=== PATIENT | male | born 1950 | race Caucasian/White ===

== ENCOUNTER → 2018-08-11 | Outpatient (CLI) | payer OTHER ==
[~2018-08-11] MED LIST: ASPIR 8181 MG PO; ATORVASTATIN CA40 MG PO; BRILINTA90 MG PO; HYTRIN 1 MG CAP1 MG PO; HYTRIN 5 M5 MG/1 CAP PO; METOPROLOL TART25 MG PO; NITROGLYCERIN0.4 MG SUBLING; TYLENOL325 MG PO; VITAMIN D2000 UNIT PO
--- NOTE | 2018-08-25 20:50 | SLEEP ---
[address] [address] SLEEP STUDY REPORT Name: JAVIERPAULINO Mouna Room: [facility]#: [id number] Admission: 08/11/18 Attend Phys: Jordy Delarosa Discharge: Date of : 48 Report #: [id number] THIS REPORT FOR: //name// CC: Jen Callejas DO This study has been reviewed in its entirety by a board certified sleep specialist DATE OF SERVICE: 08/12/2018 HOME SLEEP STUDY ATTENDING PHYSICIAN: Dr. Jen Callejas. The patient is a 68-year-old who weighs 195 pounds with a BMI of 29.6. The patient's [place] score was 8. The patient underwent home sleep study performed at [facility]. Total recording time was 371 minutes. During the night study, the patient had 21 obstructive apneas, 1 central and no mixed apneas and no hypopneas. The patient's apnea hypopnea index was 5 per hour. Supine index 6.5 per hour. Nocturnal oximetry study revealed an average oxygen saturation of 92% with a lowest of 80%. Thirty minutes were spent in oxygen saturation of less than 90%. Mean heart rate was 75 beats per minute with a maximum of 92 beats per minute. IMPRESSION: 1. Mild sleep apnea-hypopnea syndrome with an apnea-hypopnea index of 5 per hour. 2. Mild nocturnal hypoxia secondary to obstructive sleep apnea. RECOMMENDATIONS: 1. The patient has only mild sleep apnea. I would recommend weight loss as the initial form of treatment. 2. Once optimum weight loss is achieved, then re-evaluate. if the patient continues to be symptomatic, then treatment option would include use of an oral appliance as recommended by the dentist versus a trial of CPAP. 3. Avoid [place] [address] SLEEP STUDY REPORT Name: PAULINO HERRERA Room: [facility]#: [id number] Admission: 08/11/18 Attend Phys: Jordy Delarosa Discharge: Date of : 48 Report #: [id number] 4. Cautioned regarding driving until symptoms of sleep apnea resolve with the above recommendations. <ELECTRONICALLY SIGNED> By: Duc Jimenez MD 08/25/182049 1605 Jose Cruz Jimenez MD /nt
== END ==
LOC: M.SLEEPLAB 09:43
DX: G47.30 Sleep apnea, unspecified (principal); G47.9 Sleep disorder, unspecified; G47.34 Idiopathic sleep related nonobstructive alveolar hypoventilation; I10 Essential (primary) hypertension; E78.5 Hyperlipidemia, unspecified; I65.29 Occlusion and stenosis of unspecified carotid artery; E66.9 Obesity, unspecified; F17.210 Nicotine dependence, cigarettes, uncomplicated; I25.810 Atherosclerosis of coronary artery bypass graft(s) without angina pectoris; Z68.39 Body mass index [BMI] 39.0-39.9, adult

== ENCOUNTER → 2018-11-28 | Outpatient (CLI) | payer OTHER | LOC: M.ULTRA 10:50 | DX: E04.1 Nontoxic single thyroid nodule (principal) ==

== ENCOUNTER 2020-05-23 07:36 | Observation (INO) | payer OTHER ==
[~2020-05-23] VITALS: Ht 172.7 cm; Wt 87.1 kg
[2020-05-23] VITALS (12 sets, daily range): BP systolic 110–153; BP diastolic 62–89
--- NOTE | ~2020-05-23 | H ---
[address] [address] HISTORY AND PHYSICAL Name: PAULINO HERRERA Room: [address] Kelley Burch#: [id number] Admission: 05/23/20 Attend Phys: Syd Fink MD, F Discharge: 05/24/20 Date of : 48 Report #: [id number] THIS REPORT FOR: cc: Jen Callejas Linda J. DO ~ [facility],Medical Records Staff Please refer to the History and Physical performed in the physician's office. By: [id number] Records Staff [facility] /PEGGY
[2020-05-23 08:11] LABS: HEMATOCRIT 41.7 % (42.0-52.0); HEMOGLOBIN 14.2 gm/dL (14.0-18.0); MCH 30.6 pg (26.0-34.0); MCHC 33.9 g/dL (28.0-37.0); MCV 90.1 fL (80.0-100.0); MPV 8.8 fl. (7.2-11.1); RBC 4.63 mil/uL (4.50-6.00); RDW-CV 13.4 % (10.5-14.5); WBC 8.2 thou/uL (4.0-11.0)
[2020-05-23 08:19] LABS: ANION GAP 8 mmol/L (7-16); BUN 17 mg/dL (7-18); CALCIUM 9.1 mg/dL (8.5-10.1); CHLORIDE 104 mmol/L (98-107); CO2 26 mmol/L (21-32); CREATININE 1.1 mg/dL (0.6-1.3); GLUCOSE 81 mg/dL (70-99); SODIUM 138 mmol/L (136-145)
[2020-05-23] MEDS ORDERED: PROTONIX40 M2 PO (08:21)
[2020-05-23 08:22] LABS: APTT 26.7 Seconds (25.0-31.3); PROTIME 10.7 Seconds (9.20-11.50)
[2020-05-23 08:24] LABS: ALBUMIN 3.8 g/dL (3.4-5.0); ALKALINE PHOSPHATASE 92 U/L (46-116); CHOLESTEROL 168 mg/dL (<200); HDL CHOLESTEROL 41 mg/dL (>40); LDL CHOLESTEROL 87 mg/dL (<100); SGOT 24 U/L (15-37); SGPT 22 U/L (30-65); TC:HDL 4.1 Ratio (Not establshd); TOTAL BILIRUBIN 0.7 mg/dL (<0.1-1.0); TOTAL PROTEIN 7.8 g/dL (6.4-8.2); TRIGLYCERIDE 200 mg/dL (<150); VLDL 40 mg/dL (<40)
[2020-05-23 08:25] LABS: SERUM ASSESSMENT Clear
--- NOTE | 2020-05-23 09:30 | EKG ---
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
--- NOTE | 2020-05-23 13:53 | EKG ---
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1950 Requested By: Syd Fink Order Number: [id number] Reading MD: Syd Fink Measurements Intervals [facility] [place] Rate: 84 P: 73 SD: 170 QRS: 14 QRSD: 92 T: 75 QT: 391 QTc: 463 Interpretive Statements Sinus rhythm nonspecific st segment changes Low voltage, extremity leads Consider left ventricular hypertrophy Compared to ECG 05/23/2020 08:37:57 No significant changes Electronically Signed On 05-23-2020 13:53:32 DIRECTOR OF FEDERAL SALES by Syd Fink [email or web address] <ELECTRONICALLY SIGNED> By: Syd Fink MD, FAC 05/23/20 1353 1129 1129 Syd Fink MD, [facility] /EPI
--- NOTE | 2020-05-23 16:53 | CARD ---
[address] [address] CARDIAC CATH REPORT Name: PAULINO HERRERA Room: [address] Kelley M.RYessy#: [id number] Admission: 05/23/20 Attend Phys: Syd Fink MD, F Discharge: Date of : 48 Report #: [id number] THIS REPORT FOR: cc: Jen Callejas Linda J. DO ~ Syd Fink MD [facility] APPROVED REPORT Study performed: 05/23/2020 09:18:30 Patient Details Patient Status: Out-Patient Room #: The patient is a 69 year-old male Event Personnel Syd Fink Armament Repairer, Josias Smart PHOTOLITH OPERATOR Monitor, Debbi Alberto RN Neonatal Intensive Care Nurse, Keon Calzada RTR Scrub Procedures Performed Left Heart Cath Coronaries, Bypass Grafts [id number] LHCCORCABG BHUPENDRA Revasc Graft Single RCA C9604 SVGREVSING BHUPENDRA Revasc Graft Single OM C9604 SVGREVSING Hemostasis w/ Angioseal Indication Unstable angina Risk Factors Hypercholesterolemia, Coronary Artery Disease, Tobacco History () Previous Procedures/Diagnoses Previous CABGPrevious PCI Admission/Lab Medications/Medications given during procedure Glycoprotein IllbIlla Inhibitors, Heparin Unfract. Procedure Narrative The patient was brought electively to the Cardiac Catheterization Laboratory and was prepped and draped in a sterile manner. The right femoral was infiltrated with 1% Lidocaine subcutaneous anesthesia. A [place] 6 FR sheath was inserted into the right femoral artery. Coronary angiography was performed using coronary diagnostic catheters. The right coronary system [place] [address] CARDIAC CATH REPORT Name: JAVIERPAULINO Room: [address] Kelley Burch#: [id number] Admission: 05/23/20 Attend Phys: Syd Fink MD, F Discharge: Date of : 48 Report #: [id number] a JR4 catheter. The left coronary system was accessed and visualized with a JL4 catheter. Left ventricular/Aortic Valve gradient assessed via catheter pullback. Closure device was deployed with a 6 Fr Angioseal. The patient tolerated the procedure well and there were no complications associated with the procedure. There was no hematoma. Intraoperative Conscious Sedation Sedation start time: 948 Case end Time: 1045 Fentanyl 100 mcg Versed 5 mg Fluoro Time: 10.4 minutes Dose: DAP 208808 cGycm2 1843 mGy Contrast Type and Amount: Omnipaque 230 ml Coronary Angiography The patient's coronary anatomy is right dominant. [place] Artery Percent Stenosis Patent ZIEGLER graft to the LAD. SVG to the ramus artery had a 30% proximal stenosis. SVG to the circumflex artery had multiple stents with a mid 80% restenosis noted. SVG to the RCA had a mid 90% stenosis. Diagnostic Cath Left Main 70% proximal stenosis LAD 90% mid stenosis noted. Circumflex proximally occluded Right Coronary proximally occluded Left Ventriculography Left Ventriculography was not performed. Hemodynamics The aortic pressure is 172/73 mmHg with a mean of 112 mmHg. The left ventricular pressure is 159/10 mmHg with a mean of mmHg. The left ventricular end diastolic pressure is 16 mmHg. There was no gradient across the aortic valve upon pullback. Pullback from the left ventricle to the aorta revealed no gradient across the aortic valve. PCI Technique Lesion Anticoagulation was achieved with Heparin. bolus of iv aggrastat given Percutaneous coronary intervention was performed on the svg to the RCA. The lesion stenosis prior to intervention was 90% [place] [address] CARDIAC CATH REPORT Name: PAULINO HERRERA Room: [address] Kiersten#: [id number] Admission: 05/23/20 Attend Phys: Syd Fink MD, F Discharge: Date of : 48 Report #: [id number] 3 flow. A 6F RCB 100CM Guide Catheter was used to engage the right SVG ostium. A IG: BMW 190cm Interventional Guidewire was used to cross the lesion. BALLOON DILATION A Balloon catheter 2.5 x 18 mm was inserted and inflated up to 12 vianca for 19seconds. Repeat angiography revealed the following post-dilatation results: 70% stenosis. STENT DEPLOYMENT A drug-eluting stent [place] RX Stent 3.5X18mm was inserted and inflated up to 14.00atm for 12seconds. Repeat angiography revealed the following post-stent deployment results: 0% stenosis. Additional Inflation: 16.00atm for 6seconds. Final angiography reveals 0 % stenosis with JUDITH 3 flow. PCI Technique Lesion 2 Percutaneous Coronary Intervention was performed on the svg to the circumflex artery. Percutaneous coronary intervention was performed on the svg to the circumflex artery. The lesion stenosis prior to intervention was 80% with JUDITH 3 flow. A left svg Guide Catheter was used to engage the svg ostium. A [facility] Interventional Guidewire was used to cross the lesion. Stent Deployment A drug-eluting stent [place] RX Stent 2.73a09qj was inserted and inflated up to 14.00atm for 10seconds. Repeat angiography revealed the following post-stent deployment results: 0% stenosis. Additional Inflation: 18.00atm for 12seconds. Additional Inflation: 21.00atm for 17seconds. Final angiography reveals 0 % stenosis with JUDITH 3 flow. Conclusion 1. 70% stenosis of the left main artery, and 90% stenosis of the mid LAD 2. 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 Patent SVG to the ramus artery. 4. SVG to the circumflex artery had multiple stents with a 80% mid stenosis noted 5. SVG to the RCA had a mid 90% stenosis. 6. Patent ZIEGLER graft to the LAD 7. successful placement of drug eluting stents [place] [address] CARDIAC CATH REPORT Name: PAULINO HERRERA Room: [address] Kelley Burch#: [id number] Admission: 05/23/20 Attend Phys: Syd Fink MD, F Discharge: Date of : 48 Report #: [id number] circumflex artery and to the RCA Recommendations Smoking Cessation Medications Administered Prasugrel <ELECTRONICALLY SIGNED> By: Syd Fink MD, FACC 05/23/201651 51 1652Dwest Fink MD, FACC /INF
[2020-05-24] VITALS: BP 127/58
[2020-05-24 04:00] VITALS: BP 128/86
[2020-05-24 04:31] LABS: HEMATOCRIT 38.9 % (42.0-52.0); HEMOGLOBIN 13.3 gm/dL (14.0-18.0); MCH 30.8 pg (26.0-34.0); MCHC 34.2 g/dL (28.0-37.0); MCV 89.9 fL (80.0-100.0); MPV 8.6 fl. (7.2-11.1); RBC 4.33 mil/uL (4.50-6.00); RDW-CV 13.4 % (10.5-14.5); WBC 9.3 thou/uL (4.0-11.0)
--- NOTE | 2020-05-24 04:53 | NUR ---
ASSUMED CARE OF PT AFTER REPORT AT 1930. PT A&OX4. VSS. PHYSICAL ASSESSMENT COMPLETED AND CHARTED. PT ON RA. PT TRACING SR ON TELE. PT UPADLIB TO RESTROOM. POST CATH SITE TO RIGHT GROIN-CLEAN, DRY & INTACT. CALL LIGHT WITHIN REACH.
[2020-05-24 04:56] LABS: CALCIUM 9.1 mg/dL (8.5-10.1); CREATININE 1.1 mg/dL (0.6-1.3); POTASSIUM 3.7 mmol/L (3.5-5.1); TROPONIN-I LEVEL 0.2 ng/mL (<0.06)
[2020-05-24 08:18] VITALS: BP 127/55
[2020-05-24] MEDS ORDERED: EFFIENT10 MG PO (08:40)
[2020-05-24 09:30] VITALS: BP 153/62
--- NOTE | 2020-05-24 09:33 | NUR ---
CM SPOKE TO THE PT TO DISCUSS CM ASSESSMENT. PT A&O, INDEPENDENT WITH ADL'S, ACTIVE AND DRIVES. PT RESIDES AT HOME WITH . PT USES 0 DME. PT HAS 0 HX OF HH OR SNF. NO CM D/C PLANNING NEEDS ANTICIPATED. CM WILL REMAIN AVAILABLE TO ASSIST AND FOLLOW NEEDED.
[2020-05-24 10:10] VITALS: BP 127/55
--- NOTE | 2020-05-24 11:38 | NUR ---
PT DISCHARGED TO HOME. IV OUT. PT STABLE. SR ON MONITOR. GROIN DRESSING C/D/I. DENIED PAIN. PERSONAL ITEMS SENT WITH PT.
--- NOTE | 2020-05-24 14:02 | EKG ---
[place] [address] ELECTROCARDIOGRAM REPORT Name: PAULINO HERRERA ROGERS Room: [address] M.R.#: [id number] Admission: 05/23/20 Attend Phys: Syd Fink MD Discharge: 05/24/20 Date of : 48 Date of Service: 05/24/20 0524 Report #: [id number] THIS REPORT FOR: //name// [facility] Test Date: 2020-05-24 Test Time: 05:24:19 Pat Name: PAULINO HERRERA Department: Room: [address] Gender: M Mailer: RPARAVEL : 1950 Requested By: Syd Fink Order Number: [id number] Ana MD: Grayson Davies Measurements Intervals [place] Rate: 67 P: 69 DE: 180 QRS: 15 QRSD: 94 T: 86 QT: 393 QTc: 415 Interpretive Statements Sinus rhythm Low voltage, extremity leads Consider left ventricular hypertrophy Nonspecific T abnormalities, lateral leads Compared to ECG 05/23/2020 11:29:37 No significant changes noted Electronically Signed On 05-24-2020 14:02:01 RADIO MECHANIC APPRENTICE by Grayson Davies [email or web address] <ELECTRONICALLY SIGNED> By: Grayson Davies MD, [facility] 05/24/20 1402 3 3 Grayson Davies MD, [facility] /EPI
--- NOTE | 2020-05-25 12:25 | D ---
[address] [address] DISCHARGE SUMMARY Name: PAULINO HERRERA Room: [address] Kelley Burch#: [id number] Admission: 05/23/20 Attend Phys: Syd Fink MD, F Discharge: 05/24/20 Date of : 48 Report #: [id number] THIS REPORT FOR: cc: Jen Callejas Linda J. DO ~ Syd Fink MD [facility] DATE OF SERVICE: 05/24/2020 PRIMARY CARE PHYSICIAN: Jen Callejas DO DISCHARGE DIAGNOSES: 1. Crescendo angina. 2. Coronary artery disease. 3. Chronic obstructive pulmonary disease. 4. Hyperlipidemia. 5. Tobacco abuse. CONSULTANTS: None. PROCEDURES: Left heart catheterization with placement of 2 drug-eluting stents in the vein graft to the right coronary artery as well as the vein graft to the circumflex artery. HISTORY OF PRESENT ILLNESS: The patient is a 69-year-old white male who was brought to the outpatient department to undergo repeat cardiac catheterization. The patient had previous quadruple coronary artery bypass surgery at [facility] in 2004. He has had multiple stents since that time, the last was in 2016. Previous echocardiogram showed normal left ventricular function. Recently, he is having frequent episodes of chest tightness with minimal activity. He does have a chronic cough. He does get short of breath and exerts himself. Unfortunately, he continues to smoke. He has had no recent syncope or fever. I saw him in the Cardiology Clinic who recommended to undergo repeat cardiac catheterization. 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 MEDICATIONS ON ADMISSION: Consisted of aspirin, Lipitor, Klonopin to sleep, metoprolol, Hytrin for prostatism. ALLERGIES: He has no known drug allergies. PHYSICAL EXAMINATION: VITAL SIGNS: Blood pressure 130/70, pulse is 70. CHEST: [place] [address] DISCHARGE SUMMARY Name: PAULINO HERRERA ROGERS Room: [address]#: [id number] Admission: 05/23/20 Attend Phys: Syd Fink MD, F Discharge: 05/24/20 Date of : 48 Report #: [id number] CARDIOVASCULAR: Regular rate and rhythm. ABDOMEN: Soft. EXTREMITIES: Had no edema. SKIN: Warm and dry. RADIOLOGICAL STUDIES: ECG, sinus rhythm, nonspecific ST-segment changes. LABORATORY WORK: Sodium 138, BUN 14, creatinine 1.1, glucose 79. His liver function studies were normal. His cholesterol was 168, triglyceride 200, HDL 41, LDL 87. His white blood cell count was 9.3, hemoglobin 14.2. HOSPITAL COURSE: The patient was brought to the outpatient department. I performed left heart catheterization from the right femoral artery. No ventriculogram was performed. LVEDP was only 16. There was a 70% narrowing of the left main artery and a 90% narrowing of the mid LAD. The circumflex and right coronary artery was chronically occluded. There is a patent ZIEGLER graft to the LAD. There was a patent vein graft to the ramus artery. The vein graft to the circumflex artery had multiple stents with 80% restenosis in the mid portion of stent. The vein graft to the right coronary artery had a 90% mid stenosis. He was then given heparin and Aggrastat. I placed drug-eluting stents in the vein graft to the right coronary artery as well as vein graft to the circumflex artery. He tolerated this well and was loaded with Effient 60 mg. An Angio-Seal was placed in the right femoral artery. Fortunately, he had no further chest pain, arrhythmias or heart failure following the procedure. Prior to discharge, he had no complaints with ambulating. There was no hematoma in the right groin. Followup ECG showed a sinus rhythm with nonspecific ST-segment changes. Followup lab work the next day showed his troponin was only 0.2. His hematocrit dropped from 41 to 38. At the time of discharge, his vital signs include a blood pressure of 120/60, pulse 60, he is afebrile. He was discharged to return to care of Dr. Jen Callejas for routine medical care. I plan on seeing him in Cardiology Clinic in 8 weeks for followup. He was to contact my office if he had recurrent chest pain. I strongly recommended he attempts to stop smoking. He is scheduled to undergo a carotid Doppler when he sees me in the office. I did suggest he use nicotine patch in an effort to stop smoking. He is felt to have a good prognosis from cardiac standpoint. He was discharged on his home medications include aspirin 81 mg a day, Lipitor 80 mg a day. If LDL remains greater than 70, I would consider switching him to Crestor. He was continued on Klonopin, metoprolol 25 mg twice a day. If blood pressure tolerates, I would consider an SUMIT inhibitor because of vascular disease. He was to continue Hytrin for prostatism. He has nitroglycerin as needed for chest pain and he was started on Effient 10 mg a day, which I take for at least [address] [address] DISCHARGE SUMMARY Name: PAULINO HERRERA Room: [address] Kelley Burch#: [id number] Admission: 05/23/20 Attend Phys: Syd Fink MD, F Discharge: 05/24/20 Date of : 48 Report #: [id number] following placement of a drug-eluting stent. I did recommend he start an exercise program and maintain a heart healthy diet. <ELECTRONICALLY SIGNED> By: Syd Fink MD, FACC 05/25/20 1225 0832 [id number] Rosario Fink MD, FACTaylor /nt
== END 2020-05-24 11:20 | disposition home or self-care (01) ==
LOC: M.CL 07:36 → M.TBA-CV 10:09 → M.2W 10:09
PROVIDERS: ADMIT Internal Medicine Cardiovascular Disease; ATTEND Internal Medicine Cardiovascular Disease
DX: I25.118 Atherosclerotic heart disease of native coronary artery with other forms of angina pectoris (principal); J44.9 Chronic obstructive pulmonary disease, unspecified; E78.5 Hyperlipidemia, unspecified; F17.200 Nicotine dependence, unspecified, uncomplicated; Z79.82 Long term (current) use of aspirin; Z79.899 Other long term (current) drug therapy; Z20.828 Contact with and (suspected) exposure to other viral communicable diseases